=== PATIENT | male | born 1995 | race Caucasian/White ===

== ENCOUNTER 2017-04-28 20:45 | Emergency (ER) | payer OTHER ==
[~2017-04-28] VITALS: Ht 172.7 cm; Wt 81.6 kg
[2017-04-28] MEDS ORDERED: ONDANSETRON 4 MG TAB.RAPDIS ONE (20:54)
[2017-04-28] MEDS ORDERED: ONDANSETRON 4 MG TAB.RAPDIS SL ONE (21:00)
--- NOTE | 2017-04-28 21:00 | NUR ---
PT BIBA#[id number] FROM ALF, PER EMS, PT DRANK 2 BOTTLES OF WATER AND THEN VOMITED, [employer] OFFICER STATES HE SAY BLOOD IN THE VOMIT, NAD NOTED, VSS, WAITING FOR MD VELASQUEZ.
[2017-04-28 21:25] VITALS: BP 122/78
== END 2017-04-28 21:26 ==
LOC: ER 20:48
DX: R11.2 Nausea with vomiting, unspecified (principal)
CPT/HCPCS: 99283; A4606; Q0162; Z7610